=== PATIENT | female | born 1965 | race Caucasian/White ===

== ENCOUNTER 2022-12-22 19:21 | Emergency (ER) | payer MEDICAID ==
[~2022-12-22] VITALS: Ht 165.1 cm; Wt 70.0 kg
[2022-12-22 19:25] VITALS: O2SAT 98
[2022-12-22 20:16] LABS: HEMATOCRIT 31.3 % (36.0-48.0); HEMOGLOBIN 10.1 g/dL (12.0-16.0); MEAN CORPUSCULAR HEMOGLOBIN 27.5 pg (28.0-32.0); MEAN CORPUSCULAR HGB CONC 32.1 g/dL (31.0-37.0); MEAN CORPUSCULAR VOLUME 85.6 fL (81.0-99.0); PLATELET 242 x1000/uL (130-400); RED BLOOD CELL COUNT 3.66 mill/uL (4.2-5.4); RED CELL DISTRIBUTION WIDTH 14.1 % (11.6-14.6); WHITE BLOOD COUNT 5.9 x1000/uL (4.5-11.0)
[2022-12-22 20:30] LABS: CHLORIDE 108 mEq/L (98-107); POTASSIUM 3.2 mEq/L (3.5-5.1); SODIUM 143 mEq/L (136-145)
[2022-12-22 20:38] LABS: ALANINE AMINOTRANSFERASE 23 IU/L (13-61); ALBUMIN 3.6 g/dL (3.4-5.0); ASPARTATE AMINOTRANSFERASE 19 IU/L (15-37); BILIRUBIN TOTAL 0.2 mg/dL (0.1-1.0); CALCIUM 8.6 mg/dL (8.5-10.1); CARBON DIOXIDE 31 mEq/L (21-32); CREATININE 0.9 mg/dL (0.6-1.3); PROTEIN TOTAL 7.1 g/dL (6.0-8.3); UREA NITROGEN BLOOD 13 mg/dL (7-21)
[2022-12-22 20:49] LABS: GLUCOSE 43 mg/dL (70-105)
[2022-12-22] MEDS ORDERED: POTASSIUM CHLORIDE 20MEQ/PACKET PO NR (21:15)
[2022-12-22] MEDS ORDERED: POTASSIUM CHLORIDE 20MEQ/PACKET PO ONE (21:15)
[2022-12-22 22:05] VITALS: BP 106/65; PULSE 56; RESP 22; TEMP 97.1
[2022-12-22] MEDS ORDERED: IBUP-2029 MT (22:58)
== END 2022-12-23 00:02 | disposition home or self-care (01) ==
LOC: ER 19:21
DX: K80.50 Calculus of bile duct without cholangitis or cholecystitis without obstruction (principal); Z87.19 Personal history of other diseases of the digestive system
CPT/HCPCS: 36415; 76705; 80053; 82962; 85027; 93005; 99284

== ENCOUNTER 2022-12-23 06:04 | Emergency (ER) | payer MEDICAID ==
[~2022-12-23] VITALS: Ht 165.1 cm; Wt 61.0 kg
[~2022-12-23 06:04] MED LIST: IBUP-2029 MT
[2022-12-23 06:09] VITALS: BP 101/67; PULSE 76; RESP 18; TEMP 98.1; O2SAT 97
== END 2022-12-23 08:30 | disposition left against medical advice (07) ==
LOC: ER 06:05
DX: M79.10 Myalgia, unspecified site (principal); Z53.21 Procedure and treatment not carried out due to patient leaving prior to being seen by health care provider
CPT/HCPCS: 99281; 99283

== ENCOUNTER 2022-12-26 21:36 | Emergency (ER) | payer MEDICAID ==
[~2022-12-26] VITALS: Ht 167.6 cm; Wt 70.0 kg
[2022-12-26 21:39] VITALS: TEMP 98.1; O2SAT 98
[2022-12-26 22:46] LABS: BASOPHILS % 1.2 % (0.0-2.0); EOSINOPHILS % 2.8 % (0.0-5.0); HEMATOCRIT. 31.3 % (36.0-48.0); HEMOGLOBIN. 10.4 g/dL (12.0-16.0); LYMPHOCYTES % 43.9 % (20.0-50.0); MEAN CORPUSCULAR HGB CONC 33.1 g/dL (31.0-37.0); MEAN CORPUSCULAR VOLUME 84.8 fL (81.0-99.0); MEAN PLATELET VOLUME 8.1 fl (7.4-10.4); MONOCYTES % 10.7 % (2.0-8.0); NEUTROPHILS % 41.4 % (40.0-76.0); PLATELET 236 x1000/uL (130-400); RED CELL DISTRIBUTION WIDTH 14.6 % (11.6-14.6); WHITE BLOOD COUNT 5.9 x1000/uL (4.5-11.0)
[2022-12-26 22:54] LABS: CHLORIDE 105 mEq/L (98-107); INDEX HEMOLYSI 1 (1-3); INDEX ICTERIC 1 (1-4); INDEX LIPEMIC 1 (1-3); SODIUM 143 mEq/L (136-145)
[2022-12-26 23:04] LABS: ALANINE AMINOTRANSFERASE 26 IU/L (13-61); ALBUMIN 3.6 g/dL (3.4-5.0); ASPARTATE AMINOTRANSFERASE 22 IU/L (15-37); BILIRUBIN TOTAL 0.2 mg/dL (0.1-1.0); CARBON DIOXIDE 32 mEq/L (21-32); CREATININE 0.8 mg/dL (0.6-1.3); GLUCOSE 104 mg/dL (70-105); PROTEIN TOTAL 7.2 g/dL (6.0-8.3); TROPONIN I HIGH SENSITIVITY 5 ng/L (<54); UREA NITROGEN BLOOD 14 mg/dL (7-21)
[2022-12-27 01:48] LABS: CLARITY URINE TURBID (CLEAR); COLOR URINE YELLOW (YELLOW); GLUCOSE URINE NEGATIVE (NEGATIVE); KETONES URINE NEGATIVE (NEGATIVE); LEUKOCYTE ESTERASE URINE TRACE (NEGATIVE); NITRITE URINE NEGATIVE (NEGATIVE); OCCULT BLOOD URINE NEGATIVE (NEGATIVE); PH URINE >=9.0 (4.5-8.0); PROTEIN URINE TRACE (NEGATIVE); SPECIFIC GRAVITY URINE 1.017 (1.005-1.030); UROBILINOGEN URINE 0.2 E.U./dL (0.2-1.0)
[2022-12-27 01:51] LABS: BACTERIA URINE NONE SEEN; RBC URINE 0-2 /hpf (0-2); SQUAMOUS EPITHELIAL CELL URINE NONE SEEN /lpf (RARE/1+); YEAST URINE NONE SEEN
[2022-12-27 02:21] VITALS: BP 99/53; PULSE 73; RESP 16
== END 2022-12-27 02:33 | disposition home or self-care (01) ==
LOC: ER 21:36
DX: K80.20 Calculus of gallbladder without cholecystitis without obstruction (principal); R07.9 Chest pain, unspecified; R10.11 Right upper quadrant pain; Z88.4 Allergy status to anesthetic agent
CPT/HCPCS: 36415; 71045; 80053; 81003; 84484; 85025; 93005; 99285

== ENCOUNTER 2023-03-25 20:13 | Emergency (ER) | payer MEDICAID ==
[~2023-03-25] VITALS: Ht 170.2 cm; Wt 70.0 kg
[2023-03-25 20:22] VITALS: BP 148/94; PULSE 82; RESP 16; TEMP 98.3; O2SAT 100
== END 2023-03-25 23:34 | disposition left against medical advice (07) ==
LOC: ER 20:13
DX: R10.9 Unspecified abdominal pain (principal); Z53.21 Procedure and treatment not carried out due to patient leaving prior to being seen by health care provider
CPT/HCPCS: 93005; 99281

== ENCOUNTER 2023-03-26 03:10 | Emergency (ER) | payer MEDICAID ==
[~2023-03-26] VITALS: Ht 170.2 cm; Wt 71.0 kg
[2023-03-26 03:22] VITALS: BP 111/64; PULSE 77; RESP 16; TEMP 98.6; O2SAT 98
== END 2023-03-26 06:37 | disposition left against medical advice (07) ==
LOC: ER 03:10
DX: R07.89 Other chest pain (principal); Z53.21 Procedure and treatment not carried out due to patient leaving prior to being seen by health care provider
CPT/HCPCS: 99281

== ENCOUNTER 2024-05-19 19:14 | Emergency (ER) | payer MEDICAID ==
[~2024-05-19] VITALS: Ht 175.3 cm; Wt 110.0 kg
[2024-05-19 19:26] VITALS: BP 110/72; PULSE 82; RESP 20; TEMP 36.8; O2SAT 98
[2024-05-19 22:06] LABS: BASOPHILS % 1.2 % (0.0-2.0); HEMATOCRIT. 31.9 % (36.0-48.0); LYMPHOCYTES % 44.8 % (20.0-50.0); MEAN CORPUSCULAR HEMOGLOBIN 25.9 pg (28.0-32.0); MEAN CORPUSCULAR HGB CONC 31.4 g/dL (31.0-37.0); MEAN CORPUSCULAR VOLUME 82.5 fL (81.0-99.0); MEAN PLATELET VOLUME 8.4 fl (7.4-10.4); MONOCYTES % 7.7 % (2.0-8.0); NEUTROPHILS % 41.3 % (40.0-76.0); PLATELET 223 x1000/uL (130-400); RED BLOOD CELL COUNT 3.87 mill/uL (4.2-5.4); RED CELL DISTRIBUTION WIDTH 14.4 % (11.6-14.6); WHITE BLOOD COUNT 5.6 x1000/uL (4.5-11.0)
[2024-05-19 22:17] LABS: CARBON DIOXIDE 30 mEq/L (21-32); CHLORIDE 101 mEq/L (98-107); POTASSIUM 3.4 mEq/L (3.5-5.1); SODIUM 140 mEq/L (136-145)
[2024-05-19 22:18] LABS: CALCIUM 9.2 mg/dL (8.7-10.4)
[2024-05-19 22:22] LABS: CREATININE 0.8 mg/dL (0.6-1.0); GLUCOSE 79 mg/dL (70-105)
[2024-05-19 22:23] LABS: UREA NITROGEN BLOOD 11 mg/dL (9-23)
[2024-05-19 22:24] LABS: ALANINE AMINOTRANSFERASE 18 IU/L (10-49); ALBUMIN 4.1 g/dL (3.2-4.8); ASPARTATE AMINOTRANSFERASE 24 IU/L (<34)
[2024-05-19 22:25] LABS: BILIRUBIN TOTAL 0.3 mg/dL (0.1-1.0); PROTEIN TOTAL 7.3 g/dL (6.0-8.3)
[2024-05-19 22:37] LABS: BILIRUBIN DIRECT < 0.1 mg/dL (<=3.0); TROPONIN I HIGH SENSITIVITY < 4 ng/L (3.0-34)
[2024-05-19 22:46] LABS: HCG SCREEN NEGATIVE
[2024-05-19] MEDS: ONDANSETRON 4MG ODT PO NR (23:04)
== END 2024-05-20 00:32 | disposition home or self-care (01) ==
LOC: ER 19:14
DX: R11.0 Nausea (principal); E11.9 Type 2 diabetes mellitus without complications; Z87.440 Personal history of urinary (tract) infections; Z88.8 Allergy status to other drugs, medicaments and biological substances
CPT/HCPCS: 99284; 80076; 80048; 84703; 83690; 85025; 84484; 36415; 93005; Q0162

== ENCOUNTER 2025-02-09 18:50 | Emergency (ER) | payer MEDICAID ==
[~2025-02-09] VITALS: Ht 165.1 cm; Wt 68.0 kg
[~2025-02-09 18:50] MED LIST changes: +IBUP-1455 MT; -IBUP-2029 MT
[2025-02-09 18:53] VITALS: O2SAT 96
[2025-02-09] MEDS: KETOROLAC 15MG/ML VIAL IM ONE (19:49)
[2025-02-09] MEDS: ONDANSETRON 4MG ODT PO ONE (19:49)
[2025-02-09 20:18] LABS: BASOPHILS % 0.6 % (0.0-2.0); EOSINOPHILS % 3.8 % (0.0-5.0); HEMATOCRIT. 30.4 % (36.0-48.0); HEMOGLOBIN. 9.5 g/dL (12.0-16.0); LYMPHOCYTES % 41.4 % (20.0-50.0); MEAN PLATELET VOLUME 8.1 fl (7.4-10.4); MONOCYTES % 8.5 % (2.0-8.0); NEUTROPHILS % 45.7 % (40.0-76.0); PLATELET 214 x1000/uL (130-400); RED BLOOD CELL COUNT 3.81 mill/uL (4.2-5.4); RED CELL DISTRIBUTION WIDTH 15.1 % (11.6-14.6)
[2025-02-09 20:28] LABS: CLARITY URINE CLEAR (CLEAR); GLUCOSE URINE NEGATIVE (NEGATIVE); KETONES URINE NEGATIVE (NEGATIVE); LEUKOCYTE ESTERASE URINE 1+ (NEGATIVE); NITRITE URINE NEGATIVE (NEGATIVE); OCCULT BLOOD URINE NEGATIVE (NEGATIVE); PH URINE 6.5 (4.5-8.0); PROTEIN URINE NEGATIVE (NEGATIVE); SPECIFIC GRAVITY URINE 1.023 (1.005-1.030); UROBILINOGEN URINE 1.0 E.U./dL (0.2-1.0)
[2025-02-09 20:32] LABS: CREATININE 0.8 mg/dL (0.6-1.0)
[2025-02-09 20:33] LABS: ETHANOL BLOOD < 10 mg/dL (<10); PROTEIN TOTAL 6.8 g/dL (6.0-8.3); TROPONIN I HIGH SENSITIVITY < 4 ng/L (3.0-34); UREA NITROGEN BLOOD 13 mg/dL (9-23)
[2025-02-09 20:34] LABS: ASPARTATE AMINOTRANSFERASE 23 IU/L (<34)
[2025-02-09 20:35] LABS: BILIRUBIN DIRECT < 0.1 mg/dL (<=3.0); BILIRUBIN TOTAL 0.2 mg/dL (0.1-1.0)
[2025-02-09 20:46] LABS: COLOR URINE STRAW (YELLOW)
[2025-02-09 20:47] LABS: BACTERIA URINE NONE SEEN; RBC URINE NONE SEEN /hpf (0-2); SQUAMOUS EPITHELIAL CELL URINE RARE /lpf (RARE/1+)
[2025-02-09] MEDS ORDERED: METH-653 MT (21:55)
[2025-02-09] MEDS ORDERED: IBUP-1455 MT (21:55)
[2025-02-09 22:48] VITALS: BP 116/88; PULSE 74; RESP 16; TEMP 36.6; O2SAT 98
== END 2025-02-09 22:53 | disposition home or self-care (01) ==
LOC: ER 18:50
DX: K80.70 Calculus of gallbladder and bile duct without cholecystitis without obstruction (principal); E11.9 Type 2 diabetes mellitus without complications; E78.00 Pure hypercholesterolemia, unspecified; Z88.5 Allergy status to narcotic agent
CPT/HCPCS: 80076; 80048; 81003; 81025; 80320; 83690; 83735; 85025; 84484; 36415; 76700; 96372; 99285; Q0162; J1885; G0480